=== PATIENT | male | born 1980 | race American Indian/Alaskan Native ===

== ENCOUNTER 2016-07-30 11:07 | Observation (INO) | payer SELFPAY ==
[2016-07-30 12:44] LABS: BASO # 0.1 K/uL (0.0-0.2); BASO % 1.1 % (0.0-2.0); EOS # 0.2 K/uL (0.0-0.7); EOS % 3.1 % (0.0-4.0); HEMATOCRIT 43.2 % (35.0-51.0); LYMPH # 1.5 K/uL (1.0-4.3); LYMPH % 20.6 % (20.0-40.0); MEAN CELL VOLUME 95.5 fL (80.0-94.0); MEAN CORPUSCULAR HEMOGLOBIN 32.1 pg (27.0-31.0); MEAN CORPUSCULAR HGB CONC 33.6 g/dL (33.0-37.0); MEAN PLATELET VOLUME 8.6 fL (7.2-11.7); MONO # 0.6 K/uL (0.0-0.8); MONO % 8.9 % (0.0-10.0); NRBC % 0.1 % (0.0-2.0); RED CELL DISTRIBUTION WIDTH 14.1 % (11.5-14.5); WHITE BLOOD COUNT 7.1 K/uL (4.8-10.8)
[2016-07-30 12:52] LABS: CHLORIDE 106 mmol/L (98-107); SODIUM 140 mmol/L (132-148)
[2016-07-30 12:53] LABS: POTASSIUM 3.7 mmol/L (3.6-5.2)
[2016-07-30 12:55] LABS: ALB/GLOB RATIO 1.3 (1.0-2.1); ALKALINE PHOSPHATASE 56 U/L (38-126); ALT/SGPT 42 U/L (21-72); AST/SGOT 36 U/L (17-59); BILIRUBIN,TOTAL 1.1 mg/dL (0.2-1.3); BLOOD UREA NITROGEN 11 mg/dL (9-20); CALCIUM 8.9 mg/dl (8.6-10.4); CARBON DIOXIDE 23 mmol/L (22-30); GFR AFRICAN-AMERICAN > 60; GLUCOSE,RANDOM 92 mg/dL (75-110); TOTAL PROTEIN 7.2 g/dL (6.3-8.3)
[2016-07-30 12:56] LABS: ALCOHOL SERUM < 10 mg/dl (0-10)
--- NOTE | 2016-07-30 13:15 | C.PDOC ---
History Of Present Illness <Brandi Terrazas PA-C - Last Filed: 07/30/16 17:48> <Roseanne Fine - Last Filed: 07/31/16 05:46> <Tom Allred - Last Filed: 07/31/16 14:42> 36 y /o male presents to the ED for psych evaluation. Pt brought in by police, found talking to himself and taking his clothes off; presenting the same in ED. Pt has no complaints. Denies depression, SI, HI, fever, headache, chest pain, abdominal pain, vomiting, trauma or injury. (Brandi Terrazas PA-C) History Per: Patient History/Exam Limitations: no limitations Current Symptoms Are (Timing): Still Present Severity: Mild Associated Symptoms: denies: Depression, Suicidal Thoughts Involuntary Hold By: None Recent travel outside of the [place]: No <Brandi Terrazas PA-C - Last Filed: 07/30/16 17:48> <Roseanne Fine - Last Filed: 07/31/16 05:46> <Tom Allred - Last Filed: 07/31/16 14:42> Time Seen by Provider: 07/30/16 11:23 Chief Complaint (Nursing): Psychiatric Evaluation Past Medical History Reviewed: Historical Data, Nursing Documentation, Vital Signs Family History: States: Unknown Family Hx - Social History Hx Alcohol Use: No Hx Substance Use: No <Brandi Terrazas PA-C - Last Filed: 07/30/16 17:48> Review Of Systems Except As Marked, All Systems Reviewed And Found Negative. Constitutional: Negative for: Fever, Chills Cardiovascular: Negative for: Chest Pain Respiratory: Negative for: Shortness of Breath Gastrointestinal: Negative for: Nausea, Vomiting, Abdominal Pain Neurological: Negative for: Headache <Brandi Terrazas PA-C - Last Filed: 07/30/16 17:48> Physical Exam - Physical Exam Appears: Non-toxic, No Acute Distress Skin: Warm, Dry, No Rash Head: Atraumatic, Normacephalic Neck: Normal, Normal ROM, Supple Chest: Symmetrical Cardiovascular: Rhythm Regular, No Murmur Respiratory: Normal Breath Sounds, No Rales, No Rhonchi, No Wheezing Gastrointestinal/Abdominal: Normal Exam, Soft, No Tenderness Extremity: Normal ROM Extremity: Bilateral: Atraumatic Neurological/Psych: Oriented x3, Other (flat affect) <Brandi Terrazas PA-C - Last Filed: 07/30/16 17:48> ED Course And Treatment - Laboratory Results Result Diagrams: 07/30/16 12:35 07/30/16 12:35 O2 Sat by Pulse Oximetry: 98 (room air) Pulse Ox Interpretation: Normal <Brandi Terrazas PA-C - Last Filed: 07/30/16 17:48> - Laboratory Results Result Diagrams: 07/30/16 12:35 07/30/16 12:35 Pulse Ox Interpretation: Normal - Radiology CXR: Interpreted by Me, Viewed By Me CXR Interpretation: No: Infiltrates, Fracture, Pnemothorax <Roseanne Fine - Last Filed: 07/31/16 05:46> - Laboratory Results Result Diagrams: 07/30/16 12:35 07/30/16 12:35 <Tom Allred - Last Filed: 07/31/16 14:42> Medical Decision Making <Brandi Terrazas PA-C - Last Filed: 07/30/16 17:48> <Roseanne Fine - Last Filed: 07/31/16 05:46> <Tom Allred - Last Filed: 07/31/16 14:42> Medical Decision Makin yo M presents for psychiatric evaluation, after being brought in [employer], patient was observed talking to himself and undressing in public. Plan: -Labs -etoh -drug scree -UA -Placed in ED observation (Brandi Terrazas PA-C) pt accepted at [facility] (Tom Allred) ED OBSERVATION Date of observation admission: 07/30/16 Time of observation admission: 12:05 <Brandi Terrazas PA-C - Last Filed: 07/30/16 17:48> <Roseanne Fine - Last Filed: 07/31/16 05:46> <Tom Allred - Last Filed: 07/31/16 14:42> - Observation admission statement Patient is being placed in observation because:: Of the need for psych evaluation due to current symptoms. (Brandi Terrazas PA-C) - Goals of Observation Goals of observation are:: To monitor the patient's signs and symptoms. (Brandi Terrazas PA-C) - Progress Note Progress Note: 07/30/16 14:00 Labs reviewed and are wnl, ua still pending. Crisis evaluated the patient, however he is not cooperative at this time, he keeps masturbating and is talking , but in incoherent language. Patient medicated with haldol 5 mg IM. Crisis will re-evaluate was the urine drug screen has resulted. 07/30/16 16:00 Urine drug screen shows (-) drugs. Patient is medically cleared for psych evaluation. Patient remains awake, alert, is anxious at this time, is not cooperative to staff, is attempting to leave his room. [facility] is notified of lab results. Crisis re-evaluated the patient. Recommends psych evaluation by [facility]. EKG: NSR at 72 bpm, (-) acute ST changes, as read by FELICIANO. CXR: NAD, as read by FELICIANO. 07/30/16 18:[address] Fine pending evaluation & dispo by [facility] crisis. (Brandi Terrazas PA-C) 07/31/16 00:07 vitals stable 07/31/16 04:08 still awaiting bed at [facility] (Roseanne Fine) Disposition - Disposition Disposition Time: 12:05 (Patient placed in ED observation. Case then endorsed to Dr. Fine pending [facility] crisis evaluation and disposition. ) <Brandi Terrazas PA-C - Last Filed: 07/30/16 17:48> <Roseanne Fine - Last Filed: 07/31/16 05:46> - Disposition Disposition Time: 14:42 <Tom Allred - Last Filed: 07/31/16 14:42> - Disposition Disposition: Trans to Other Acute Care Hosp Condition: STABLE - Clinical Impression Clinical Impression: Psychosis - PA / FITNESS SPECIALIST / Resident Statement MD/DO has reviewed & agrees with the documentation as recorded. - Scribe Statement The provider has reviewed the documentation as recorded by the Scribe <Brandi Terrazas PA-C - Last Filed: 07/30/16 17:48> <Roseanne Fine - Last Filed: 07/31/16 05:46> <Tom Allred - Last Filed: 07/31/16 14:42> - Scribe Statement Darien Marie All medical record entries made by the Scribe were at my direction and personally dictated by me. I have reviewed the chart and agree that the record accurately reflects my personal performance of the history, physical exam, medical decision making, and the department course for this patient. I have also personally directed, reviewed, and agree with the discharge instructions and disposition. (Brandi Terrazas PA-C) Physician Patient Turnover Patient Signed Over To: Tom Allred Handoff Comments[place] [facility] [place]Roseanne Fine - Last Filed: 07/31/16 05:46>
[2016-07-30 14:44] LABS: RBC URINE 1 /hpf (0-3); URINE BILIRUBIN NEGATIVE (NEGATIVE); URINE BLOOD NEGATIVE (NEGATIVE); URINE COLOR Yellow (YELLOW); URINE GLUCOSE (UA) NORMAL (Normal); URINE KETONE NEGATIVE (NEGATIVE); URINE LEUKOCYTE ESTERASE NEG Leu/uL (Negative); URINE PROTEIN NEGATIVE (NEGATIVE); WBC URINE < 1 /hpf (0-5)
--- NOTE | 2016-07-30 20:17 | RAD ---
PROCEDURE: CHEST RADIOGRAPH, 1 VIEW HISTORY: Acute psychosis COMPARISON: None available. FINDINGS: LUNGS: Clear. PLEURA: No pneumothorax or pleural fluid seen. CARDIOVASCULAR: Normal. OSSEOUS STRUCTURES: No significant abnormalities. VISUALIZED UPPER ABDOMEN: Normal. OTHER FINDINGS: None. IMPRESSION: No active disease.
--- NOTE | 2016-07-31 12:13 | PCM.PSYCH ---
Initial Psychiatric Evaluation - Initial Psychiatric Evaluation Chief Complaint (in patient's own words): "I can leave now" History of Present Illness and Precipitating Events: The pt is seen, chart reviewed and case discussed He is a 32 yo AAM, homeless, unemployed, no child, single. He was BIB police as he was agitated and talking to imaginary people. He is a very poor historian and very evasive, guarded. He says "no" to every question, i.e. suicidality, homicidality, hallucinations, drug/alcohol use. He seems to be internally preoccupied and thought disordered. He was also agitated on and off in ED. However, he was calm with the medical technical writer. He is observed to be paranoid, too. He denied past psych hx but he appears like he has chronic mental illness No medical illness known No family psych hx reported. Current Medications: Active Medications Generic Name Dose Route Start Last Admin Trade Name Freq PRN Reason Stop Dose Admin Benztropine Mesylate 1 mg 07/31/16 12:07 Cogentin IM Q4H PRN acute dystonia Haloperidol Lactate 5 mg 07/31/16 12:07 Haldol IM Q1H PRN agitation, max 4x/24h Lorazepam 1 mg 07/31/16 12:07 Ativan IM Q2H PRN severe agitation, max 4x/24h Risperidone 1 mg 07/31/16 12:15 Risperdal Tab PO BID DEYANIRA Past Psychiatric History - Past Psychiatric History Pertinent Medical Hx (Current Medical&Sleep Prob, Allergies): Allergies Allergy/AdvReac Type Severity Reaction Status Date / Time No Known Allergies Allergy Verified 07/30/16 11:37 Unobtainable 07/30/16 Review of Systems - Psychiatric Psychiatric: Irritability, Mood Swings Mental Status Examination - Personal Presentation Personal Presentation: Looks older than stated age - Affect Affect: Blunted - Motor Activity Motor Activity: Calm (now) - Reliability in Providing Information Reliability in Providing Information: Poor, due to alteration in thoughts, Poor , due to altered mood - Speech Speech: Disorganized - Mood Mood: Other ("OK" but was irate and agitated at times. ) - Formal Thought Process Formal Thought Process: Paranoia - Cognitive Functions Orientation: Person, Place Sensorium: Drowsy Attention/Concentration: Easily distracted Abstract Thinking: Abell Estimate of Intelligence: Below average Judgement: Imparied, as evidence by: Poor judgement Memory: Recent impaired, as evidence by: Inability to recall events of the day, Remote impaired as evidenced by: Inability to recall sig life events - Risk Risk: Diminished functioning - Limitations Limitations: Living alone DSM 5 DX - DSM 5 DSM 5 Diagnosis: Psychosis unspecified r/o acute exacerbation of schizophrenia r/o Synthetic cannabionid intoxication (and induced psychosis) - Recommended/Plan of Treatment Treatment Recommendations and Plan of Treatment: Risperdal 1 mg bid for psychosis prn hienl evelia and best Refer to [facility] - awaiting bed Support and psychoed 1:1 33 min
[2016-07-31 13:38] VITALS: TEMP 97.1
[2016-07-31 15:13] VITALS: BP 132/80; PULSE 82; RESP 20; O2SAT 98
--- NOTE | 2016-07-31 18:28 | CARD ---
APPROVED REPORT EKG Measurement Heart [id number] <Conclusion> Normal sinus rhythm with sinus arrhythmia Normal ECG
== END 2016-07-31 15:29 | disposition short-term general hospital (02) ==
LOC: C.ER 11:07 → C.9OBSV 12:05
PROVIDERS: ADMIT Emergency Medicine; ATTEND Emergency Medicine
DX: F29 Unspecified psychosis not due to a substance or known physiological condition (principal)
CPT/HCPCS: 71010; 80053; 81001; 85025; 93005; 96372; 99285; G0480; J0515; J1630; J2060